=== PATIENT | male | born 1960 | race American Indian/Alaskan Native ===

== ENCOUNTER 2017-01-14 11:06 | Emergency (ER) | payer BC, OTHER ==
[2017-01-14 12:10] VITALS: BP 193/133
--- NOTE | 2017-01-14 12:16 | Emergency Department Report ---
Entered by MIRELLA GOODWIN, acting as scribe for TENZIN MARTINEZ NP. Chief Complaint: High BP Stated Complaint: MED REFILL Time Seen by Provider: 01/14/17 12:05 - HPI History of Present Illness: 56 y/o male presents needing a refill on his medicine. Denies DELANEY, SOB, chest pain. He has no PCP, which is why he comes back to ED to get his prescription refilled. - ROS Review of Systems: -chest pain -SOB -DELANEY - Exam Vital Signs: Vital Signs 01/14/17 12:05 Temperature 98.2 F Pulse Rate 100 H Respiratory 18 Rate Blood Pressure 193/133 O2 Sat by Pulse 96 Oximetry Physical Exam: PT looks well, non toxic gcs 15 steady gait MSE screening note: Focused history and physical exam performed. Due to findings the following was ordered: labs ED Disposition for MSE Condition: Stable This documentation as recorded by the scribe,MIRELLA GOODWIN,accurately reflects the service I personally performed and the decisions made by ,TENZIN MARTINEZ , [employer].
[2017-01-14 12:33] LABS: Hematocrit 39.5 % (35.5-45.6); Hemoglobin 13.4 gm/dl (11.8-15.2); Mean Corpuscular HGB Conc 34 % (32-34); Mean Corpuscular Hemoglobin 30 pg (28-32); Mean Corpuscular Volume 89 fl (84-94); Platelet Count 340 K/mm3 (140-440); Red Blood Count 4.46 M/mm3 (3.65-5.03); Red Cell Distribution Width 15.3 % (13.2-15.2); White Blood Count 5.9 K/mm3 (4.5-11.0)
[2017-01-14 12:49] LABS: Anion Gap 17 mmol/L; Blood Urea Nitrogen 16 mg/dL (9-20); Calcium 9.3 mg/dL (8.4-10.2); Carbon Dioxide 24 mmol/L (22-30); Chloride 105.5 mmol/L (98-107); Glucose 100 mg/dL (75-100); Potassium 3.8 mmol/L (3.6-5.0); Sodium 143 mmol/L (137-145)
[2017-01-14 13:52] LABS: Blastocytes % (Manual) 0 %
[2017-01-14 13:53] LABS: RBC Morphology Normal
[2017-01-14 13:54] LABS: Diff Status Complete
== END 2017-01-14 17:30 | disposition left against medical advice (07) ==
LOC: ED 11:06
DX: Z76.0 Encounter for issue of repeat prescription (principal); Z53.21 Procedure and treatment not carried out due to patient leaving prior to being seen by health care provider
CPT/HCPCS: 36415; 80048; 84484; 85007; 85025